=== PATIENT | male | born 2005 | race Two or more races ===

== ENCOUNTER 2024-06-23 15:51 | Emergency (ER) | payer MEDICAID ==
[~2024-06-23] VITALS: Ht 170.2 cm; Wt 70.0 kg
[2024-06-23 16:10] VITALS: BP 137/94; PULSE 106; RESP 17; O2SAT 99
[2024-06-23] MEDS ORDERED: BACL20TA PO (18:04)
[2024-06-23] MEDS ORDERED: METH4PAK PO (18:04)
== END 2024-06-23 21:58 | disposition home or self-care (01) ==
LOC: ER 15:51
DX: S33.5XXA Sprain of ligaments of lumbar spine, initial encounter (principal); X50.0XXA Overexertion from strenuous movement or load, initial encounter; Y93.89 Activity, other specified; Y92.89 Other specified places as the place of occurrence of the external cause; Y99.8 Other external cause status
CPT/HCPCS: 72100

== ENCOUNTER 2025-10-04 08:06 | Emergency (ER) | payer MEDICAID ==
[~2025-10-04 08:06] MED LIST: BACL20TA PO; METH4PAK PO
--- NOTE | 2025-10-04 08:30 | ED.PDOC ---
General HPI Comments This is a 20-year-old male presenting to the ED with a chief complaint of left testicular pain. Patient reports that he has been experiencing left-sided testicular pain intermittently since last wee, worsening for the past two days while at work. Patient relays that his pain was initially a 3/10, however, it is now a 6/10. Denies testicular masses Denies fevers chills night sweats nausea vomiting unintentional weight loss Denies changes in stool pattern Denies trauma to the testicle no recent fall Denies previous STD Denies urethral discharge, burning with urination, urinating more frequently, blood in the urine Chief Complaint: Testicle Pain Time Seen by MD: 08:27 Primary Care Provider: NONE Reviewed notes: Nurses Notes, Medications, Allergies Allergies: Coded Allergies: NO KNOWN ALLERGIES (Unverified , 07/31/14) Home Meds Active Scripts Baclofen (Baclofen) 20 Mg Tab, 1 TAB PO TID PRN, #30 TAB 2 Refills Prov:STACIE LAM 06/23/24 Methylprednisolone (Medrol Dosepak) 4 Mg Yo, 4 MG PO UD, #21 TAB UAD Prov:STACIE LAM 06/23/24 Information Source: Patient Mode of Arrival: Ambulatory Severity: Moderate Timing: Weeks Duration: Intermittent Prehospital treatment: None Onset: Spontaneous Symptoms: None History of: None Location male: L Scrotum Modifying factors: None Past Medical History PAST MEDICAL HISTORY: Denies Surgical History: Denies all surgeries Family History Family History: Reviewed,noncontributory to illness, Unknown Social History Smoker: Non-Smoker Alcohol: Denies ETOH Use Drugs: Denies Drug Use Lives In: Home Constitutional: denies: chills, diaphoresis, fatigue, fever, malaise, sweats, weakness, others EENTM: denies: blurred vision, double vision, ear bleeding, ear discharge, ear drainage, ear pain, ear ringing, eye pain, eye redness, hearing loss, mouth pain, mouth swelling, nasal discharge, nose bleeding, nose congestion, nose pain, photophobia, tearing, throat pain, throat swelling, voice changes, others Respiratory: denies: cough, hemoptysis, orthopnea, SOB at rest, shortness of breath, SOB with excertion, stridor, wheezing, others Cardiovascular: denies: chest pain, dizzy spells, diaphoresis, Dyspnea on exertion, edema, irregular heart beat, left arm pain, lightheadedness, palpitations, PND, syncope, others Gastrointestinal: denies: abdomen distended, abdominal pain, blood streaked bowels, constipated, diarrhea, dysphagia, difficulty swallowing, hematemesis, melena, nausea, poor appetite, poor fluid intake, rectal bleeding, rectal pain, vomiting, others Genitourinary: reports: testicle pain; denies: burning, dysuria, flank pain, frequency, hematuria, incontinence, penile discharge, penile sore, pain, testicle swelling, urgency, others Neurological: denies: dizziness, fainting, headache, left sided numbness, left sided weakness, numbness, paresthesia, pre-existing deficit, right sided numbness, right sided weakness, seizure, speech problems, tingling, tremors, weakness, others Musculoskeletal: denies: back pain, gout, joint pain, joint swelling, muscle pain, muscle stiffness, neck pain, others Integumetry: denies: bruises, change in color, change in hair/nails, dryness, laceration, lesions, lumps, rash, wounds, others Allergic/Immunocompromised: denies: Difficulty Healing, Frequent Infections, Hives, Itching, others Hematologic/Lymphatic: denies: anemia, blood clots, easy bleeding, easy bruising, swollen glands, others Endocrine: denies: excessive hunger, excessive sweating, excessive thirst, excessive urination, flushing, intolerance to cold, intolerance to heat, unexplained weight gain, unexplained weight loss, others Psychiatric: denies: anxiety, bipolar disorder, depression, hopeless, panic disorder, schizophrenia, sleepless, suicidal, others All Other Systems: Reviewed and Negative Physical Exam General Appearance: No Apparent Distress, Normal HEENT: Normal ENT Inspection, Pharynx Normal, TMs Normal Neck: Full Range of Motion, Non-Tender, Normal, Normal Inspection Respiratory: Chest Non-Tender, Lungs Clear, No Accessory Muscle Use, No Respiratory Distress, Normal Breath Sounds Cardiovascular: No Edema, No JVD, No Murmur, No Gallop, Normal Peripheral Pulses, Regular Rate/Rhythm Breast Exam: Deferred Gastrointestinal: No Organomegaly, Non Tender, No Pulsatile Mass, Normal Bowel Sounds, Soft Genitalia: Other (TTP to left teste. 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 Was a procedure done?: No Differential Diagnosis Kidney stone (Female): N/A Kidney stone (Male): N/A Penile/Scrotal: Epidiymitis, UTI, Hydrocele, Testicular Torsion, Urolithiasis X-Ray, Labs, Meds, VS Vital Signs Date Time Temp Pulse Resp B/P (MAP) Pulse Ox O2 Delivery O2 Flow Rate FiO2 10/04/25 10:13 86 16 97 Room Air 10/04/25 10:13 98.2 86 16 128/87 (101) 97 98.2 10/04/25 08:09 97.9 93 17 159/109 96 97.9 Lab Test 10/04/25 08:32 Range/Units Urine Color Colorless Yellow Urine Clarity Clear Clear Urine pH 5.5 5.0-9.0 Urine Specific [place] 1.004 1.001-1.035 Urine Protein Negative Negative Urine Ketones Negative Negative Urine Blood Negative Negative /uL Urine Nitrite Negative Negative Urine Bilirubin Negative Negative Urine Urobilinogen Normal Negative mg/dL Urine Leukocyte Esterase Negative Negative /uL Urine RBC None seen 0 - 3 /hpf Urine Microscopic WBC < 1 0-3 /HPF Urine Squamous Epithelial Cells None seen <5 /hpf Urine Bacteria None seen None Seen /hpf Urine Glucose Normal Normal mg/dL Chlamydia trachomatis (VIRGIE) Pending Neisseria gonorrhoeae (VIRGIE) Pending [facility] [id number] [place] [id number] Ph: [phone] DIAGNOSTIC IMAGING Diagnostic Imaging Report : [id number] Signed PATIENT: NAIF MARCUM OACCT: [id number] UNIT: [id number] : 2005 LOC: ER ROOM / BED: / AGE / SEX: 20 / M ADM STATUS: REG ER SERVICE [id number] ORDERING PHYSICIAN: JENNIFER,ANAY F QUILT SEWER PROCEDURE(s): TESUS - TESTICULAR ULTRASOUND REASON: L Testicular pain ORDER NUMBER(s): [id number], ACCESSION NUMBER(s): [id number] US TESTICULAR ULTRASOUND Indication: L Testicular pain Comparison: None Technique: High resolution scrotal ultrasound performed with a linear transducer. Findings: The right testis is 3.5 cm. The left testis is 3.3 cm. Procedure arterial vascular waveforms. Venous waveforms not seen likely technical. 6 mm right epididymal cyst. IMPRESSION: No acute findings. ATED BY: HALEY STEPHENS MD DICTATED DATE/TIME: 10/04/25946 SIGNED BY: HALEY STEPHENS MD SIGNED DATE/TIME: 10/04/25946 CC: X-Ray, Labs, Meds, VS Comment This is a 20-year-old male presenting to the ED with a chief complaint of left testicular pain. Patient arrives alert and oriented, ABC's intact, afebrile, vital signs stable, saturating well in room air Peripheral IV insertion+ labs were ordered. GC/Chlamydia was ordered to rule out Chlamydia and Gonorrhea. Urinalysis was ordered to rule out UTI or hematuria. Diagnostic imaging ordered by me and results interpreted by radiology : Testicular US Labs in the ED showed (pertinent+ and then pertinent-) UA negative. - physical exam notable for normal cremasteric reflex however US was ordered for conformation - scrotal ultrasound showed no evidence of torsion - labs negative for any significant hematologic or metabolic derangements - unclear etiology of patient's pain, however workup in the ED has been reassuring - re-examination w/ no concerning or worsening findings - discharge to home, recommended close pcp f/unit, return precautions discussed Additional MDM Review of External, Non-ED records: External records reviewed. Discussion with independent historian (EMS, family) history obtained from the patient/parents (if applicable) at bedside Chronic conditions affecting care: None Social determinants of health affecting care: None Consideration of admission (observation or admission): I considered escalation of care to admission for this patient, however given the reassuring workup, the patient is safe for outpatient management. Discussion with the Radiology: No Tests considered but not performed: None Prescription medication considered but not given: None On reevaluation, patient had symptomatic improvement. Patient is stable for discharge at this time. External notes reviewed. Test results and diagnostic imaging interpreted. All diagnostic findings, discharge care, education and instructions provided Follow-up with PCP in 2 to 3 days Patient verbalized understanding and agreed to treatment plan Vital signs stable, afebrile, no acute distress noted Patient ambulatory with strong steady gait Advised to return precautions for any new or worsening symptoms, return to ER immediately for re-evaluation Patient is aware that the purpose of this visit was for an acute medical emergency requiring emergent stabilization. Chronic conditions, including malignancies have not been ruled out. Patient is instructed to follow up with PCP as directed and discharge instructions for continued care and workup. If unable to arrange follow-up, patient is to return to the emergency department for reassessment. Patient (parent or legal guardian if applicable) was given verbal and written discharge instructions and acknowledges understanding. Time of 1ST Reevaluation: 08:45 Reevaluation 1ST: Improved Patient Education/Counseling: Diagnosis, Treatment Family Education/Counseling: No Family Present SEPSIS Sepsis Screen Date sepsis recognized/suspect: Oct 04, 2025 Time Sepsis recognized/suspect: 810 Recent Procedure: No On Antibiotic Therapy: No Respiratory Rate >20: No Heart Rate >90: No Temp<36 C (96.8 F) or >38.3 C: No SBP <90 or MAP <65 mmHG: No New Acute Mental Status Change: No Is the patient on CPAP, BIPAP,: No Physician Orders Testicular Ultrasound (10/04/25 08:27) Chlamydia/Gc Amplification (10/04/25 08:27) Vital Signs Date Time Temp Pulse Resp B/P (MAP) Pulse Ox O2 Delivery O2 Flow Rate FiO2 10/04/25 10:13 86 16 97 Room Air 10/04/25 10:13 98.2 86 16 128/87 (101) 97 98.2 10/04/25 08:09 97.9 93 17 159/109 96 97.9 Departure 1 Departure Time of Disposition: 10:06 Impression: Primary Impression: Left testicular pain Disposition: 01 HOME / SELF CARE / HOMELESS Condition: Stable Discharged With: Self Critical Care Note Critical Care Time?: No Stability Stability form required: No Heart Score Heart Score: Heart Score Response (Comments) Value History N/A 0 EKG N/A 0 Age N/A 0 Risk Factors N/A 0 Troponin N/A 0 Total 0 I personally scribed for ANAY RODRIGUEZ QUILT SEWER ([email or web address]) on 10/04/25 at 08:30. Electr onically submitted by Cruzito Spence ([email or web address]). I personally scribed for ANAY RODRIGUEZ QUILT SEWER ([email or web address]) on 10/04/25 at 08:31. Electr onically submitted by Cruzito Spence ([email or web address]). I personally scribed for ANAY RODRIGUEZ QUILT SEWER ([email or web address]) on 10/04/25 at 09:38. Electr onically submitted by Cruzito Spence ([email or web address]). I personally scribed for ANAY RODRIGUEZ QUILT SEWER ([email or web address]) on 10/04/25 at 10:06. Electr onically submitted by Cruzito Spence ([email or web address]). I personally scribed for ANAY RODRIGUEZ QUILT SEWER ([email or web address]) on 10/04/25 at 10:06. Electr onically submitted by Cruzito Spence ([email or web address]). ANAY RODRIGUEZ QUILT SEWER Oct 04, 2025 08:30
[2025-10-04 09:22] LABS: Urine Protein, UAD Negative (Negative)
--- NOTE | 2025-10-04 09:49 | DVH ---
US TESTICULAR ULTRASOUND Indication: L Testicular pain Comparison: None Technique: High resolution scrotal ultrasound performed with a linear transducer. Findings: The right testis is 3.5 cm. The left testis is 3.3 cm. Procedure arterial vascular waveforms. Venous waveforms not seen likely technical. 6 mm right epididymal cyst. IMPRESSION: No acute findings.
[2025-10-04 10:13] VITALS: BP 128/87; PULSE 86; RESP 16; TEMP 98.2; O2SAT 97
[2025-10-05 16:07] LABS: Chlamydia Trachomatis, NAA Negative (Negative); Neisseria gonorrhoeae, NAA Negative (Negative)
== END 2025-10-04 10:14 | disposition home or self-care (01) ==
LOC: ER 08:06
DX: N50.812 Left testicular pain (principal); A41.9 Sepsis, unspecified organism; Z79.899 Other long term (current) drug therapy
CPT/HCPCS: 76870; 81001